=== PATIENT | female | born 1945 | race African-American/Black ===

== ENCOUNTER 2017-08-08 10:11 | Outpatient (CLI) | payer MEDICARE | END 2017-08-08 10:12 | disposition home or self-care (01) | LOC: BICMAMMO 10:11 | PROVIDERS: ATTEND Family Medicine | DX: Z12.31 Encounter for screening mammogram for malignant neoplasm of breast (principal); R92.1 Mammographic calcification found on diagnostic imaging of breast | CPT/HCPCS: 77063; 77067 ==

== ENCOUNTER 2018-01-10 07:36 | Outpatient (CLI) | payer MEDICARE ==
[2018-01-10] MEDS ORDERED: Gadobenate Dimeglumine 529 MG/1 ML (20ML VIAL) ONE (10:03)
== END 2018-01-10 07:37 | disposition home or self-care (01) ==
LOC: BICMRI 07:36
PROVIDERS: ATTEND Internal Medicine Gastroenterology
DX: K62.89 Other specified diseases of anus and rectum (principal); D64.9 Anemia, unspecified; R19.5 Other fecal abnormalities
CPT/HCPCS: 72197; 82565; A9579

== ENCOUNTER 2020-05-14 10:34 | Outpatient (CLI) | payer MEDICARE ==
--- NOTE | 2020-05-14 10:56 | RAD ---
XR Chest Pa Lat STANDARD HISTORY: Dyspnea COMPARISON: 03/23/2020 FINDINGS: The heart size is normal. The lungs are well expanded without lobar consolidation, pneumoth orax or pleural effusions. Chronic parenchymal changes are again seen.. IMPRESSION: Stable exam. No radiographic evidence of acute cardiopulmonary process.
== END 2020-05-14 10:35 | disposition home or self-care (01) ==
LOC: BICRAD 10:34
PROVIDERS: ATTEND Internal Medicine Critical Care Medicine
DX: R06.00 Dyspnea, unspecified (principal)
CPT/HCPCS: 71046

== ENCOUNTER 2020-09-08 09:24 | Outpatient (CLI) | payer MEDICARE ==
--- NOTE | 2020-09-08 11:15 | CT ---
High-resolution chest CT: 09/08/2020 CT angiogram chest comparison 03/01/2020 HISTORY: Interstitial lung disease, history of rheumatoid arthritis, cough, hypoxia TECHNIQUE: Routine noncontrast enhanced high resolution chest CT obtained. FINDINGS: Evaluation for pulmonary nodules, evaluation of the viscera, evaluation of the vascular str uctures and assessment for lymphadenopathy is limited secondary to technique utilized for high-resolution protocol. The arterial structures demonstrate scattered areas of atherosclerotic calcification involving the ao rtic arch, the proximal great great vessels, and the descending thoracic aorta, and the imaged upper abdominal aorta. Limited assessment of the upper abdomen demonstrates no acute findings. No pleural, pericardial, or mediastinal fluid. Right upper lobe: Mild scattered areas of bronchiectasis are noted. There are subpleural cystic saavedra es within the anterior and medial aspect of the right upper lobe. Right middle lobe: There are linear areas of interstitial thickening, especially within the inferior anterior/lateral aspect of the right middle lobe. There are areas of subpleural cystic change/honeycombing within the inferior lateral right middle lobe. Right lower lobe: Diffuse bronchiectatic change present. Significant linear interstitial density note d, especially medially within the superior segment with subpleural cystic change and basilar honeycombing. Left upper lobe: Prominent bronchiectasis, particularly anteriorly and medially with prominent inters titial thickening and anterior medial left upper lobe honeycombing. Left lower lobe: Prominent diffuse bronchiectasis with coarse linear interstitial thickening, particu larly inferiorly, with inferior left lower lobe honeycombing. Limited assessment of the osseous structures demonstrates no acute findings. IMPRESSION: Extensive interstitial lung disease with a basilar predominance, left greater than right. Findings include a prominent diffuse bronchiectasis with a basilar predominance as well as scattered areas of subpleural cystic emphysematous disease/honeycombing.
== END 2020-09-08 09:25 | disposition home or self-care (01) ==
LOC: BICCT 09:24
PROVIDERS: ATTEND Internal Medicine Critical Care Medicine
DX: J84.9 Interstitial pulmonary disease, unspecified (principal)
CPT/HCPCS: 71250

== ENCOUNTER 2020-11-17 10:00 | Outpatient (CLI) | payer MEDICARE ==
[2020-11-17 11:01] LABS: #Eosinphils 0.1 10x3/uL (0.0-0.5); #Monocytes 0.9 10x3/uL (0.0-1.1); #Neutrophils 4.7 10x3/uL (1.5-8.4); %Basophils 0.4 % (0.0-2.0); %Eosinophils 1.9 % (0.0-6.0); %Lymphocytes 20.5 % (18.0-47.0); %Monocytes 12.1 % (0.0-10.0); %Neutrophils 64.3 % (40.0-75.0); Hemoglobin 11.7 g/dL (12.0-15.5); Mean Corpuscular HGB CONC 30.6 g/dL (32.0-36.0); Mean Corpuscular Hemoglobin 24.7 pg (27.0-33.0); Mean Corpuscular Volume 80.8 fl (81.6-98.3); Mean Platelet Volume 11.5 fl (7.4-10.4); Platelet Count 239 10x3/uL (150-450); Red Blood Cell (RBC) Count 4.73 10x6/uL (3.90-5.03); White Blood Cell (WBC) Count 7.3 10x3/uL (3.5-10.5)
[2020-11-17 11:08] LABS: ALT (SGPT) 14 U/L (8-55); AST (SGOT) 24 U/L (5-34); Albumin 3.8 g/dL (3.4-4.8); Alkaline Phosphatase 95 U/L (40-110); Anion Gap 16 mmol/L (10-20); BUN (Urea Nitrogen) 31 mg/dL (9.8-20.1); Bilirubin, Total 0.6 mg/dL (0.2-1.2); Calc. Creatinine Clearance 0 mL/min (70-130); Calcium 9.4 mg/dL (7.8-10.44); Carbon Dioxide 18 mmol/L (23-31); Chloride 108 mmol/L (98-107); Glucose 116 mg/dL (83-110); Potassium 4.1 mmol/L (3.5-5.1); Protein, Total 7.8 g/dL (5.8-8.1); Sodium 138 mmol/L (136-145)
[2020-11-18 01:16] LABS: SARS-CoV-2 PCR by NAA Not Detected (NotDetected)
== END 2020-11-17 10:01 | disposition home or self-care (01) ==
LOC: LABBT 10:00
PROVIDERS: ATTEND Internal Medicine Cardiovascular Disease
DX: Z01.812 Encounter for preprocedural laboratory examination (principal); I42.9 Cardiomyopathy, unspecified; Z20.822 Contact with and (suspected) exposure to COVID-19
CPT/HCPCS: 80053; 85025; U0003; U0005; 87635

== ENCOUNTER 2020-12-13 17:12 | Inpatient (IN) | payer MEDICARE ==
[2020-12-13 17:53] LABS: #Lymphocytes 1.3 thou/uL (1.20-3.40); #Monocytes 0.8 thou/uL (0.11-0.59); #Neutrophils 5.9 thou/uL (1.40-6.50); %Basophils 0.5 % (0.0-1.0); %Eosinophils 0.5 % (0.0-10.0); %Lymphocytes 15.8 % (21.0-51.0); %Monocytes 10.4 % (0.0-10.0); %Neutrophils 72.9 % (42.0-75.0); Hemoglobin 11.8 g/dL (12.0-16.0); Mean Corpuscular Hemoglobin 26.5 pg (27.0-31.0); Mean Corpuscular Volume 82.6 fL (78.0-98.0); Mean Platelet Volume 9.5 fL (7.4-10.4); Platelet Count 247 thou/uL (130-400); RBC Distribution Width 11.9 % (11.5-14.5); Red Blood Cell (RBC) Count 4.44 mill/uL (4.20-5.40); White Blood Cell (WBC) Count 8.1 thou/uL (4.8-10.8)
[2020-12-13 18:15] LABS: ALT (SGPT) 11 U/L (8-55); AST (SGOT) 23 U/L (5-34); Albumin 3.5 g/dL (3.4-4.8); Alkaline Phosphatase 97 U/L (40-110); Anion Gap 16 mmol/L (10-20); BUN (Urea Nitrogen) 29 mg/dL (9.8-20.1); Bilirubin, Total 0.3 mg/dL (0.2-1.2); Calc. Creatinine Clearance 0 mL/min (70-130); Calcium 8.9 mg/dL (7.8-10.44); Carbon Dioxide 16 mmol/L (23-31); Chloride 113 mmol/L (98-107); Globulin 4.1 g/dL (2.4-3.5); Glucose 136 mg/dL (83-110); Potassium 5.9 mmol/L (3.5-5.1); Protein, Total 7.6 g/dL (5.8-8.1); Sodium 139 mmol/L (136-145)
[2020-12-13 18:36] LABS: CKMB 0.7 ng/mL (0-6.6)
[2020-12-13] MEDS ORDERED: Ondansetron PF 4 MG/2 ML Vial IVP PRN ×2 (21:15→22:49)
[2020-12-13] MEDS ORDERED: Acetaminophen 325 MG TAB PO PRN ×2 (21:15→22:49)
[2020-12-13] MEDS ORDERED: Ondansetron ODT 4 MG TAB SL PRN (21:15)
[2020-12-13 21:27] VITALS: BMI 20.6
[2020-12-13] MEDS ORDERED: HumaLOG 300 UNITS/3 ML VIAL SC PRN (22:51)
[2020-12-13] MEDS ORDERED: Dextrose 50% Abboject 50 ML SYRINGE SLOW IVP PRN (22:51)
[2020-12-13] MEDS ORDERED: Dextrose 5% in Water 1,000 ML IV PRN (22:51)
[2020-12-13] MEDS ORDERED: hydrALAZINE 20 MG/ML VIAL SLOW IVP PRN (22:53)
[2020-12-13] MEDS ORDERED: Carvedilol 25 MG TAB PO SCH (23:00)
[2020-12-13] MEDS: Sodium Bicarbonate 150 MEQ in Dextrose 5% in Water 1,000 ML IV SCH (23:35)
[2020-12-13 23:55] LABS: Troponin I 0.051 ng/mL (< 0.028)
[2020-12-14 02:10] LABS: Hemoglobin 9.5 g/dL (12.0-16.0); Mean Corpuscular HGB CONC 32.5 g/dL (32.0-36.0); Mean Corpuscular Hemoglobin 26.7 pg (27.0-31.0); Mean Corpuscular Volume 82.1 fL (78.0-98.0); Mean Platelet Volume 9.6 fL (7.4-10.4); Platelet Count 196 thou/uL (130-400); RBC Distribution Width 11.8 % (11.5-14.5); Red Blood Cell (RBC) Count 3.57 mill/uL (4.20-5.40); White Blood Cell (WBC) Count 7.6 thou/uL (4.8-10.8)
[2020-12-14 02:30] LABS: Band 5 % (5-11); Hypochromia SLIGHT = 6-15 cells (100X) (0-5/hpf); Lymphocytes 37 % (21-51); MDiff Complete? YES; Monocytes 13 % (0-10); Neutrophil 44 % (42-75); Platelet Morphology Comment Appears Adequate; Reactive Lymphocytes 1 % (0-10)
[2020-12-14 02:40] LABS: Troponin I 0.033 ng/mL (< 0.028)
[2020-12-14 03:09] LABS: Anion Gap 8 mmol/L (10-20); BUN (Urea Nitrogen) 29 mg/dL (9.8-20.1); Calc. Creatinine Clearance 16 mL/min (70-130); Calcium 8.4 mg/dL (7.8-10.44); Carbon Dioxide 19 mmol/L (23-31); Chloride 112 mmol/L (98-107); Glucose 125 mg/dL (83-110); Sodium 134 mmol/L (136-145)
[2020-12-14] MEDS: Hydroxychloroquine Sulfate 200 MG TAB PO SCH ×2 (08:55→20:37)
[2020-12-14] MEDS: Carvedilol 25 MG TAB PO SCH ×2 (08:55→20:38)
[2020-12-14 13:32] LABS: SARS-CoV-2 PCR NAA for Saliva Not Detected (NotDetected)
[2020-12-14] MEDS: HumaLOG 300 UNITS/3 ML VIAL SC PRN (18:14)
[2020-12-14] MEDS: Sodium Bicarbonate 150 MEQ in Dextrose 5% in Water 1,000 ML IV SCH (20:37)
[2020-12-15] MEDS: Carvedilol 25 MG TAB PO SCH (08:51)
[2020-12-15] MEDS: Hydroxychloroquine Sulfate 200 MG TAB PO SCH (08:51)
[2020-12-15 09:35] LABS: #Basophils 0.1 thou/uL (0.0-0.2); #Lymphocytes 1.2 thou/uL (1.20-3.40); #Monocytes 0.7 thou/uL (0.11-0.59); #Neutrophils 4.3 thou/uL (1.40-6.50); %Basophils 0.8 % (0.0-1.0); %Eosinophils 0.5 % (0.0-10.0); %Lymphocytes 18.3 % (21.0-51.0); %Monocytes 11.7 % (0.0-10.0); %Neutrophils 68.7 % (42.0-75.0); Hemoglobin 10.5 g/dL (12.0-16.0); Mean Corpuscular HGB CONC 30.8 g/dL (32.0-36.0); Mean Corpuscular Hemoglobin 25.3 pg (27.0-31.0); Mean Corpuscular Volume 82.1 fL (78.0-98.0); Mean Platelet Volume 9.6 fL (7.4-10.4); Platelet Count 226 thou/uL (130-400); RBC Distribution Width 11.9 % (11.5-14.5); Red Blood Cell (RBC) Count 4.14 mill/uL (4.20-5.40); White Blood Cell (WBC) Count 6.3 thou/uL (4.8-10.8)
[2020-12-15 09:55] LABS: Anion Gap 12 mmol/L (10-20); BUN (Urea Nitrogen) 25 mg/dL (9.8-20.1); Calc. Creatinine Clearance 15 mL/min (70-130); Calcium 9.3 mg/dL (7.8-10.44); Carbon Dioxide 26 mmol/L (23-31); Chloride 105 mmol/L (98-107); Glucose 183 mg/dL (83-110); Potassium 4.7 mmol/L (3.5-5.1); Sodium 138 mmol/L (136-145)
[2020-12-15] MEDS: HumaLOG 300 UNITS/3 ML VIAL SC PRN (11:27)
[2020-12-15] MEDS ORDERED: Furosemide 20 MG/2 ML VIAL SLOW IVP SCH (12:15)
[2020-12-15 15:52] VITALS: BP 153/72; TEMP 97.5
== END 2020-12-15 18:00 | disposition home or self-care (01) | DRG 683 ==
LOC: ERS 17:12 → 2NO 19:39
PROVIDERS: ADMIT Family Medicine; ATTEND Family Medicine
DX: N17.9 Acute kidney failure, unspecified (principal); J96.11 Chronic respiratory failure with hypoxia; E87.2 Acidosis; I42.8 Other cardiomyopathies; E87.5 Hyperkalemia; I25.10 Atherosclerotic heart disease of native coronary artery without angina pectoris; E11.22 Type 2 diabetes mellitus with diabetic chronic kidney disease; I12.9 Hypertensive chronic kidney disease with stage 1 through stage 4 chronic kidney disease, or unspecified chronic kidney disease; D63.1 Anemia in chronic kidney disease; N18.30 Chronic kidney disease, stage 3 unspecified; M32.9 Systemic lupus erythematosus, unspecified; M06.9 Rheumatoid arthritis, unspecified; E11.51 Type 2 diabetes mellitus with diabetic peripheral angiopathy without gangrene; M10.9 Gout, unspecified; R77.8 Other specified abnormalities of plasma proteins; Z99.81 Dependence on supplemental oxygen; Z79.899 Other long term (current) drug therapy; Z90.710 Acquired absence of both cervix and uterus
CPT/HCPCS: 36415; 36416; 80048; 80053; 80069; 81003; 82306; 82553; 82570; 83880; 84156; 84484; 84550; 85025; 85027; 85652; 86038; 86225; 93005; 94640; J1815; J1940; J7070; J7620; U0003; U0005

== ENCOUNTER 2020-12-17 16:32 | Inpatient (IN) | payer MEDICARE ==
[2020-12-17 17:21] LABS: #Eosinphils 0.1 thou/uL (0.0-0.7); #Lymphocytes 1.5 thou/uL (1.20-3.40); #Monocytes 1.2 thou/uL (0.11-0.59); %Basophils 0.6 % (0.0-1.0); %Eosinophils 1.9 % (0.0-10.0); %Lymphocytes 18.6 % (21.0-51.0); %Monocytes 14.8 % (0.0-10.0); %Neutrophils 64.1 % (42.0-75.0); Hemoglobin 10.7 g/dL (12.0-16.0); Mean Corpuscular HGB CONC 30.5 g/dL (32.0-36.0); Mean Corpuscular Hemoglobin 25.2 pg (27.0-31.0); Mean Corpuscular Volume 82.7 fL (78.0-98.0); Mean Platelet Volume 9.8 fL (7.4-10.4); Platelet Count 233 thou/uL (130-400); RBC Distribution Width 11.8 % (11.5-14.5); Red Blood Cell (RBC) Count 4.24 mill/uL (4.20-5.40); White Blood Cell (WBC) Count 7.8 thou/uL (4.8-10.8)
[2020-12-17 17:42] LABS: ALT (SGPT) 10 U/L (8-55); AST (SGOT) 20 U/L (5-34); Albumin 3.4 g/dL (3.4-4.8); Alkaline Phosphatase 87 U/L (40-110); Anion Gap 14 mmol/L (10-20); BUN (Urea Nitrogen) 28 mg/dL (9.8-20.1); Bilirubin, Total 0.3 mg/dL (0.2-1.2); Calc. Creatinine Clearance 0 mL/min (70-130); Calcium 8.7 mg/dL (7.8-10.44); Carbon Dioxide 23 mmol/L (23-31); Chloride 109 mmol/L (98-107); Globulin 3.8 g/dL (2.4-3.5); Glucose 140 mg/dL (83-110); Potassium 4.5 mmol/L (3.5-5.1); Protein, Total 7.2 g/dL (5.8-8.1); Sodium 141 mmol/L (136-145)
[2020-12-17 18:05] LABS: CKMB 0.5 ng/mL (0-6.6)
[2020-12-17] MEDS ORDERED: Furosemide 40 MG/4 ML VIAL ONE (20:24)
[2020-12-17 20:35] LABS: Bilirubin Negative (Negative); Blood, Urine Negative (Negative); Clarity Clear (Clear); Glucose, Urine (Dipstick) Normal (Negative); Ketone, Urine Negative (Negative); Leukocyte 25 Leu/uL (Negative); Nitrite Negative (Negative); Protein, Urine (Dipstick) 100 mg/dL (Neg-Trace); RBC/HPF 0-3 HPF (0-3); Specific Gravity, Urine 1.015 (1.002-1.036); Squamous Epithelial 0-3 HPF (0-3); Urobilinogen Normal mg/dL (Less than 2)
[2020-12-17 20:36] LABS: Bacteria/HPF Rare-Few HPF (None Seen)
[2020-12-17 21:24] LABS: Troponin I 0.043 ng/mL (< 0.028)
[2020-12-18 00:09] LABS: Troponin I 0.046 ng/mL (< 0.028)
[2020-12-18] MEDS ORDERED: Ondansetron PF 4 MG/2 ML Vial IVP PRN (00:30)
[2020-12-18] MEDS ORDERED: Acetaminophen 325 MG TAB PO PRN (00:30)
[2020-12-18] MEDS ORDERED: Dextrose 50% Abboject 50 ML SYRINGE SLOW IVP PRN (00:34)
[2020-12-18] MEDS ORDERED: Dextrose 5% in Water 1,000 ML IV PRN (00:34)
[2020-12-18] MEDS ORDERED: methylPREDNISolone Sod Succ 40 MG VIAL IVP SCH (01:00)
[2020-12-18] MEDS ORDERED: cefTRIAXone\\ROCEPHIN 1 GM VIAL ONE (01:16)
[2020-12-18] MEDS: cefTRIAXone\\ROCEPHIN 1 GM in Sodium Chloride 0.9% 100 ML IVPB SCH (01:27)
[2020-12-18] MEDS: guaiFENesin ER 600 MG TAB PO PRN ×2 (01:47→20:50)
[2020-12-18] MEDS ORDERED: hydrALAZINE 20 MG/ML VIAL SLOW IVP PRN (04:05)
[2020-12-18] MEDS ORDERED: hydrALAZINE 20 MG/ML VIAL ONE (05:05)
[2020-12-18] MEDS ORDERED: Enoxaparin Sodium 60 MG/0.6 ML SYRINGE SC SCH (05:30)
[2020-12-18 05:33] LABS: Hemoglobin 10.6 g/dL (12.0-16.0); Mean Corpuscular HGB CONC 31.8 g/dL (32.0-36.0); Mean Corpuscular Hemoglobin 26.2 pg (27.0-31.0); Mean Corpuscular Volume 82.6 fL (78.0-98.0); Mean Platelet Volume 9.9 fL (7.4-10.4); Platelet Count 201 thou/uL (130-400); RBC Distribution Width 11.7 % (11.5-14.5); Red Blood Cell (RBC) Count 4.03 mill/uL (4.20-5.40); White Blood Cell (WBC) Count 7.7 thou/uL (4.8-10.8)
[2020-12-18 05:47] LABS: Anion Gap 13 mmol/L (10-20); BUN (Urea Nitrogen) 29 mg/dL (9.8-20.1); Calc. Creatinine Clearance 16 mL/min (70-130); Calcium 8.9 mg/dL (7.8-10.44); Carbon Dioxide 23 mmol/L (23-31); Chloride 107 mmol/L (98-107); Glucose 117 mg/dL (83-110); Potassium 4.2 mmol/L (3.5-5.1); Sodium 139 mmol/L (136-145)
[2020-12-18 06:03] LABS: Band 5 % (5-11); Eosinophils 2 % (0-10); Lymphocytes 29 % (21-51); MDiff Complete? YES; Monocytes 13 % (0-10); Neutrophil 51 % (42-75)
[2020-12-18] MEDS ORDERED: Enoxaparin Sodium 60 MG/0.6 ML SYRINGE ONE (06:06)
[2020-12-18] MEDS ORDERED: Famotidine 20 MG TAB ONE (08:12)
[2020-12-18] MEDS ORDERED: Furosemide 20 MG/2 ML VIAL ONE (08:12)
[2020-12-18] MEDS ORDERED: Enoxaparin Sodium 30 MG/0.3 ML SYRINGE SC SCH (09:00)
[2020-12-18] MEDS ORDERED: Carvedilol 3.125 MG TAB PO SCH (09:00)
[2020-12-18] MEDS ORDERED: guaiFENesin ER 600 MG TAB PO SCH (09:00)
[2020-12-18 09:33] VITALS: BMI 21.5
[2020-12-18] MEDS: Carvedilol 25 MG TAB PO SCH ×2 (11:37→17:34)
[2020-12-18] MEDS: Famotidine 20 MG TAB PO SCH (11:38)
[2020-12-18] MEDS: Furosemide 20 MG/2 ML VIAL SLOW IVP SCH ×3 (11:39→18:45)
[2020-12-18] MEDS: hydrALAZINE 25 MG TAB PO SCH ×3 (11:39→20:42)
[2020-12-18] MEDS: methylPREDNISolone Sod Succ 40 MG VIAL IVP SCH ×3 (11:41→20:50)
[2020-12-18] MEDS: Isosorbide Dinitrate 20 MG TAB PO SCH ×3 (11:41→20:49)
[2020-12-18] MEDS ORDERED: Albuterol 200 PUFF (6.7GM INHALER) INH SCH (13:00)
[2020-12-18] MEDS: HumaLOG 300 UNITS/3 ML VIAL SC PRN ×2 (17:23→20:51)
[2020-12-19] MEDS: cefTRIAXone\\ROCEPHIN 1 GM in Sodium Chloride 0.9% 100 ML IVPB SCH (01:43)
[2020-12-19] MEDS: HumaLOG 300 UNITS/3 ML VIAL SC PRN ×4 (06:12→21:17)
[2020-12-19 07:27] LABS: Anion Gap 18 mmol/L (10-20); BUN (Urea Nitrogen) 45 mg/dL (9.8-20.1); Calc. Creatinine Clearance 10 mL/min (70-130); Calcium 9.5 mg/dL (7.8-10.44); Carbon Dioxide 20 mmol/L (23-31); Chloride 105 mmol/L (98-107); Glucose 198 mg/dL (83-110); Potassium 5.6 mmol/L (3.5-5.1); Sodium 137 mmol/L (136-145)
[2020-12-19 07:31] LABS: Troponin I 0.042 ng/mL (< 0.028)
[2020-12-19 07:36] LABS: Band 8 % (5-11); Hemoglobin 10.7 g/dL (12.0-16.0); Lymphocytes 9 % (21-51); MDiff Complete? YES; Mean Corpuscular HGB CONC 31.2 g/dL (32.0-36.0); Mean Corpuscular Hemoglobin 25.5 pg (27.0-31.0); Mean Corpuscular Volume 81.8 fL (78.0-98.0); Mean Platelet Volume 10.3 fL (7.4-10.4); Monocytes 2 % (0-10); Neutrophil 81 % (42-75); Platelet Count 202 thou/uL (130-400); RBC Distribution Width 11.8 % (11.5-14.5); White Blood Cell (WBC) Count 10.1 thou/uL (4.8-10.8)
[2020-12-19] MEDS: Famotidine 20 MG TAB PO SCH (09:09)
[2020-12-19] MEDS: hydrALAZINE 25 MG TAB PO SCH ×3 (09:09→21:19)
[2020-12-19] MEDS: Isosorbide Dinitrate 20 MG TAB PO SCH ×3 (09:09→21:19)
[2020-12-19] MEDS: Furosemide 20 MG/2 ML VIAL SLOW IVP SCH (09:11)
[2020-12-19] MEDS: Carvedilol 25 MG TAB PO SCH ×2 (09:11→18:07)
[2020-12-19] MEDS: Enoxaparin Sodium 30 MG/0.3 ML SYRINGE SC SCH (09:12)
[2020-12-19] MEDS: methylPREDNISolone Sod Succ 40 MG VIAL IVP SCH (09:12)
[2020-12-19] MEDS: Benzonatate 100 MG CAP PO PRN (14:57)
[2020-12-19] MEDS: guaiFENesin ER 600 MG TAB PO PRN (21:20)
[2020-12-20] MEDS: cefTRIAXone\\ROCEPHIN 1 GM in Sodium Chloride 0.9% 100 ML IVPB SCH (02:08)
[2020-12-20] MEDS: Benzonatate 100 MG CAP PO PRN ×2 (02:09→20:49)
[2020-12-20 05:39] LABS: Anion Gap 17 mmol/L (10-20); BUN (Urea Nitrogen) 62 mg/dL (9.8-20.1); Calc. Creatinine Clearance 11 mL/min (70-130); Calcium 8.6 mg/dL (7.8-10.44); Carbon Dioxide 20 mmol/L (23-31); Chloride 106 mmol/L (98-107); Glucose 153 mg/dL (83-110); Potassium 4.7 mmol/L (3.5-5.1); Sodium 138 mmol/L (136-145)
[2020-12-20 06:03] LABS: Hemoglobin 9.6 g/dL (12.0-16.0); Mean Corpuscular HGB CONC 31.6 g/dL (32.0-36.0); Mean Corpuscular Hemoglobin 25.7 pg (27.0-31.0); Mean Corpuscular Volume 81.6 fL (78.0-98.0); Platelet Count 209 thou/uL (130-400); RBC Distribution Width 11.9 % (11.5-14.5); Red Blood Cell (RBC) Count 3.73 mill/uL (4.20-5.40); White Blood Cell (WBC) Count 20.2 thou/uL (4.8-10.8)
[2020-12-20 06:04] LABS: Band 11 % (5-11); Lymphocytes 7 % (21-51); MDiff Complete? YES; Monocytes 8 % (0-10); Neutrophil 74 % (42-75)
[2020-12-20] MEDS ORDERED: predniSONE 20 MG TAB PO SCH ×2 (08:00→18:10)
[2020-12-20] MEDS: Carvedilol 25 MG TAB PO SCH ×2 (08:52→16:19)
[2020-12-20] MEDS: Famotidine 20 MG TAB PO SCH (08:52)
[2020-12-20] MEDS: hydrALAZINE 25 MG TAB PO SCH ×3 (08:53→20:49)
[2020-12-20] MEDS: Enoxaparin Sodium 30 MG/0.3 ML SYRINGE SC SCH (08:53)
[2020-12-20] MEDS: Isosorbide Dinitrate 20 MG TAB PO SCH ×3 (08:53→20:50)
[2020-12-20] MEDS: HumaLOG 300 UNITS/3 ML VIAL SC PRN ×3 (11:27→21:18)
[2020-12-20] MEDS ORDERED: Furosemide 40 MG/4 ML VIAL SLOW IVP SCH (18:30)
[2020-12-21] MEDS: cefTRIAXone\\ROCEPHIN 1 GM in Sodium Chloride 0.9% 100 ML IVPB SCH (00:36)
[2020-12-21 05:02] LABS: #Lymphocytes 1.5 thou/uL (1.20-3.40); #Monocytes 1.1 thou/uL (0.11-0.59); #Neutrophils 13.7 thou/uL (1.40-6.50); %Basophils 0.1 % (0.0-1.0); %Lymphocytes 8.9 % (21.0-51.0); %Monocytes 6.5 % (0.0-10.0); %Neutrophils 84.5 % (42.0-75.0); Hemoglobin 9.8 g/dL (12.0-16.0); Mean Corpuscular HGB CONC 31.4 g/dL (32.0-36.0); Mean Corpuscular Volume 82.8 fL (78.0-98.0); Mean Platelet Volume 10.4 fL (7.4-10.4); Platelet Count 213 thou/uL (130-400); RBC Distribution Width 11.7 % (11.5-14.5); Red Blood Cell (RBC) Count 3.77 mill/uL (4.20-5.40); White Blood Cell (WBC) Count 16.3 thou/uL (4.8-10.8)
[2020-12-21 05:20] LABS: Anion Gap 14 mmol/L (10-20); BUN (Urea Nitrogen) 70 mg/dL (9.8-20.1); Calc. Creatinine Clearance 11 mL/min (70-130); Carbon Dioxide 21 mmol/L (23-31); Chloride 108 mmol/L (98-107); Glucose 157 mg/dL (83-110); Potassium 4.6 mmol/L (3.5-5.1); Sodium 138 mmol/L (136-145)
[2020-12-21] MEDS: Famotidine 20 MG TAB PO SCH (08:44)
[2020-12-21] MEDS: Enoxaparin Sodium 30 MG/0.3 ML SYRINGE SC SCH (08:44)
[2020-12-21] MEDS: Isosorbide Dinitrate 20 MG TAB PO SCH ×2 (08:44→15:25)
[2020-12-21] MEDS: Carvedilol 25 MG TAB PO SCH (08:44)
[2020-12-21] MEDS: hydrALAZINE 25 MG TAB PO SCH ×2 (08:44→15:25)
[2020-12-21 15:23] VITALS: BP 121/59; TEMP 97.7
[2020-12-22] MEDS ORDERED: Furosemide 40 MG TAB PO SCH (07:30)
== END 2020-12-21 16:55 | disposition home or self-care (01) | DRG 291 ==
LOC: ERS 16:32 → 2SW 20:15 → ERHOLD 20:28 → 2SW 12-18 08:57 → 2NO 12-20 08:29
PROVIDERS: ADMIT Internal Medicine; ATTEND Internal Medicine
DX: I13.0 Hypertensive heart and chronic kidney disease with heart failure and stage 1 through stage 4 chronic kidney disease, or unspecified chronic kidney disease (principal); I50.23 Acute on chronic systolic (congestive) heart failure; N17.9 Acute kidney failure, unspecified; N30.00 Acute cystitis without hematuria; J84.9 Interstitial pulmonary disease, unspecified; J96.11 Chronic respiratory failure with hypoxia; N18.30 Chronic kidney disease, stage 3 unspecified; E11.22 Type 2 diabetes mellitus with diabetic chronic kidney disease; M32.9 Systemic lupus erythematosus, unspecified; D63.1 Anemia in chronic kidney disease; M06.9 Rheumatoid arthritis, unspecified; M10.9 Gout, unspecified; E11.51 Type 2 diabetes mellitus with diabetic peripheral angiopathy without gangrene; I25.5 Ischemic cardiomyopathy; I25.10 Atherosclerotic heart disease of native coronary artery without angina pectoris; I42.8 Other cardiomyopathies; E55.9 Vitamin D deficiency, unspecified; R77.8 Other specified abnormalities of plasma proteins; J84.10 Pulmonary fibrosis, unspecified; D72.829 Elevated white blood cell count, unspecified; Z90.49 Acquired absence of other specified parts of digestive tract; Z28.21 Immunization not carried out because of patient refusal; Z87.891 Personal history of nicotine dependence; I25.2 Old myocardial infarction; Z90.710 Acquired absence of both cervix and uterus; Z99.81 Dependence on supplemental oxygen; Z82.49 Family history of ischemic heart disease and other diseases of the circulatory system; Z91.14 Patient's other noncompliance with medication regimen; Z79.899 Other long term (current) drug therapy
CPT/HCPCS: 36415; 36416; 71045; 71046; 80048; 80053; 81003; 81015; 82553; 83880; 84484; 85025; 87086; 93005; 93970; 94640; 96374; J0360; J0696; J1650; J1815; J1940; J2920; J3490; J7512; J7620

== ENCOUNTER 2022-02-02 18:24 | Inpatient (IN) | payer MEDICARE ==
[2022-02-02 19:21] LABS: #Lymphocytes 1.1 thou/uL (1.20-3.40); #Monocytes 0.5 thou/uL (0.11-0.59); %Basophils 0.5 % (0.0-1.0); %Eosinophils 0.2 % (0.0-10.0); %Lymphocytes 14.1 % (21.0-51.0); %Monocytes 6.1 % (0.0-10.0); Hemoglobin 14.2 g/dL (12.0-16.0); Mean Corpuscular Hemoglobin 26.8 pg (27.0-31.0); Mean Corpuscular Volume 89.4 fL (78.0-98.0); Mean Platelet Volume 12.2 fL (7.4-10.4); Platelet Count 133 thou/uL (130-400); RBC Distribution Width 14.7 % (11.5-14.5); White Blood Cell (WBC) Count 7.6 thou/uL (4.8-10.8)
[2022-02-02 19:23] LABS: INR-International Normal Ratio 1.6; Prothrombin Time 18.9 sec (12.0-14.7)
[2022-02-02 19:24] LABS: PTT 28.5 sec (22.9-36.1)
[2022-02-02 19:29] LABS: ALT (SGPT) 104 U/L (8-55); AST (SGOT) 193 U/L (5-34); Albumin 3.3 g/dL (3.4-4.8); Alkaline Phosphatase 103 U/L (40-110); Anion Gap 24 mmol/L (10-20); BUN (Urea Nitrogen) 84 mg/dL (9.8-20.1); Bilirubin, Total 0.7 mg/dL (0.2-1.2); Calc. Creatinine Clearance 0 mL/min (70-130); Calcium 9.5 mg/dL (7.8-10.44); Chloride 110 mmol/L (98-107); Estimated GFR 11; Globulin 4.6 g/dL (2.4-3.5); Glucose 91 mg/dL (83-110); Potassium 5.9 mmol/L (3.5-5.1); Protein, Total 7.9 g/dL (5.8-8.1); Sodium 136 mmol/L (136-145)
[2022-02-02 19:32] LABS: Carbon Dioxide 8 mmol/L (23-31)
[2022-02-02 19:33] LABS: D-Dimer Test 4.35 *mcg/mL (0.27-0.43)
[2022-02-02 19:37] LABS: Hypochromia SLIGHT = 6-15 cells (100X) (0-5/hpf); Large Platelets SLIGHT; MDiff Complete? YES; Platelet Morphology Comment Appears Adequate; Polychromasia SLIGHT = 2-3 cells (100X) (0-2/hpf); Target Cells SLIGHT = 2-5 cells (100X) (0-1/hpf)
[2022-02-02 20:01] LABS: SARS-CoV-2 NAA Rapid Test Not Detected (NotDetected)
[2022-02-02] MEDS ORDERED: Cefepime 2 GM VIAL ONE (20:13)
[2022-02-02 20:16] LABS: Bacteria/HPF 4+ HPF (None Seen); Bilirubin Negative (Negative); Blood, Urine Trace (Negative); Clarity Clear (Clear); Glucose, Urine (Dipstick) Normal (Negative); Ketone, Urine Negative (Negative); Leukocyte 250 Leu/uL (Negative); Nitrite 1+ (Negative); Protein, Urine (Dipstick) 30 mg/dL (Neg-Trace); RBC/HPF 0-3 HPF (0-3); Specific Gravity, Urine 1.012 (1.002-1.036); Squamous Epithelial 0-3 HPF (0-3); Urobilinogen Normal mg/dL (Less than 2)
[2022-02-02] MEDS ORDERED: Calcium Gluc 4.6 MEQ/10 ML (100 MG/ML) ONE (20:23)
[2022-02-02] MEDS ORDERED: Sodium Bicarbonate 2.5 MEQ/5 ML VIAL ONE (20:23)
[2022-02-02] MEDS ORDERED: Sodium Bicarb 50 MEQ/50 ML Abboject 8.4% SYRINGE ONE (20:35)
[2022-02-02 20:39] LABS: Analyzer IN Cardio ER; Calcium, Ionized (venous) 1.13 mmol/L (1.16-1.32); Chloride (VBG) 109 mmol/L (98-106); Hemoglobin (Hb) 13.5 g/dL (11.7-16.1); Potassium (VBG) 5.43 mmol/L (3.70-5.30); Sodium 137.1 mmol/L (133-146); pH (venous) 7.29 (7.32-7.43)
[2022-02-02 20:47] LABS: Actual Bicarbonate (HCO3v) 14 mEq/L (22-28)
[2022-02-02 20:50] LABS: CKMB 1.9 ng/mL (0-6.6)
[2022-02-02] MEDS ORDERED: Heparin 25,000 units/D5W 500 ML ONE (21:29)
[2022-02-02] MEDS ORDERED: Nitroglycerin 2% Ointment 1 INCH/1 GM Packet ONE (21:29)
[2022-02-02] MEDS ORDERED: Heparin 10,000 UNITS/ 10 ML VIAL ONE (21:29)
[2022-02-02 22:20] LABS: Lactic Acid 3.4 mmol/L (0.5-2.2)
[2022-02-02] MEDS ORDERED: Ondansetron ODT 4 MG TAB PO PRN (22:48)
[2022-02-02] MEDS ORDERED: HYDROcodone/Acetaminophen 5/325 mg Tablet PO PRN ×2 (22:48)
[2022-02-02] MEDS ORDERED: Ondansetron PF 4 MG/2 ML Vial IVP PRN (22:48)
[2022-02-02 23:21] VITALS: BMI 19.5
[2022-02-02] MEDS: Benzonatate 100 MG CAP PO PRN (23:40)
[2022-02-02 23:44] LABS: Troponin I 0.696 ng/mL (< 0.028)
[2022-02-02] MEDS ORDERED: Fentanyl 100 MCG/2 ML VIAL SLOW IVP PRN (23:56)
[2022-02-03 00:50] LABS: Anion Gap 23 mmol/L (10-20); BUN (Urea Nitrogen) 82 mg/dL (9.8-20.1); Calc. Creatinine Clearance 9 mL/min (70-130); Calcium 9.4 mg/dL (7.8-10.44); Carbon Dioxide 13 mmol/L (23-31); Chloride 111 mmol/L (98-107); Estimated GFR 12; Glucose 83 mg/dL (83-110); Potassium 5.6 mmol/L (3.5-5.1); Sodium 141 mmol/L (136-145)
[2022-02-03] MEDS ORDERED: HumaLOG 300 UNITS/3 ML VIAL SC PRN (01:49)
[2022-02-03] MEDS ORDERED: Dextrose 5% in Water 1,000 ML IV PRN (01:49)
[2022-02-03] MEDS ORDERED: Dextrose 50% Abboject 50 ML SYRINGE SLOW IVP PRN (01:49)
[2022-02-03] MEDS ORDERED: methylPREDNISolone Sod Succ 40 MG VIAL IVP SCH (02:30)
[2022-02-03 04:13] LABS: Anion Gap 21 mmol/L (10-20); BUN (Urea Nitrogen) 83 mg/dL (9.8-20.1); Calc. Creatinine Clearance 9 mL/min (70-130); Calcium 9.4 mg/dL (7.8-10.44); Carbon Dioxide 12 mmol/L (23-31); Chloride 112 mmol/L (98-107); Estimated GFR 12; Glucose 78 mg/dL (83-110); Sodium 139 mmol/L (136-145)
[2022-02-03 04:20] LABS: Critical Call Chem Troponin I RESULT DECREASING; Troponin I 0.625 ng/mL (< 0.028)
[2022-02-03 04:27] LABS: #Lymphocytes 1.3 thou/uL (1.20-3.40); #Monocytes 1.1 thou/uL (0.11-0.59); #Neutrophils 6.8 thou/uL (1.40-6.50); %Basophils 0.1 % (0.0-1.0); %Eosinophils 0.2 % (0.0-10.0); %Lymphocytes 13.9 % (21.0-51.0); %Monocytes 11.5 % (0.0-10.0); %Neutrophils 74.3 % (42.0-75.0); Burr Cells SLIGHT = 2-5 cells (100X) (0-1/hpf); Hypochromia SLIGHT = 6-15 cells (100X) (0-5/hpf); MDiff Complete? YES; Mean Corpuscular HGB CONC 30.9 g/dL (32.0-36.0); Mean Corpuscular Hemoglobin 27.1 pg (27.0-31.0); Mean Corpuscular Volume 87.8 fL (78.0-98.0); Mean Platelet Volume 11.6 fL (7.4-10.4); Platelet Count 118 thou/uL (130-400); Platelet Morphology Comment Appears Decreased; Polychromasia SLIGHT = 2-3 cells (100X) (0-2/hpf); RBC Distribution Width 14.3 % (11.5-14.5); Red Blood Cell (RBC) Count 4.78 mill/uL (4.20-5.40); Sickle Cells SLIGHT = 1-5 cells (100X) (None Seen); Target Cells SLIGHT = 2-5 cells (100X) (0-1/hpf); White Blood Cell (WBC) Count 9.1 thou/uL (4.8-10.8)
[2022-02-03 04:33] LABS: Lactic Acid 2.9 mmol/L (0.5-2.2)
[2022-02-03] MEDS: Enoxaparin Sodium 30 MG/0.3 ML SYRINGE SC SCH (07:45)
[2022-02-03] MEDS: methylPREDNISolone Sod Succ 40 MG VIAL IVP SCH (07:46)
[2022-02-03] MEDS ORDERED: Cefepime 2 GM in Sodium Chloride 0.9% 100 ML IVPB SCH (08:00)
[2022-02-03] MEDS ORDERED: Heparin 10,000 UNITS/ 10 ML VIAL ONE (09:23)
[2022-02-03] MEDS: HumaLOG 300 UNITS/3 ML VIAL SC PRN (11:28)
[2022-02-03] MEDS ORDERED: Tuberculin PPD 0.1 ML VIAL I-DERMAL SCH (15:15)
[2022-02-03 17:34] LABS: Anion Gap 19 mmol/L (10-20); BUN (Urea Nitrogen) 86 mg/dL (9.8-20.1); Calc. Creatinine Clearance 8 mL/min (70-130); Calcium 9.1 mg/dL (7.8-10.44); Carbon Dioxide 17 mmol/L (23-31); Chloride 110 mmol/L (98-107); Estimated GFR 11; Glucose 279 mg/dL (83-110); Potassium 5.6 mmol/L (3.5-5.1); Sodium 140 mmol/L (136-145)
[2022-02-03 17:50] LABS: HBSAB Concentration Less than 8.00 mIU/mL; HBSAg Index 0.35 S/CO (0-0.99); Hep B Surf AB Non-Reactive (NonReactive); Hep B Surf Ag Non-Reactive S/CO (NonReactive); Hep C IgG Ab Non-Reactive (NonReactive); Hep C Index 0.06 S/CO (0-0.79)
[2022-02-03 17:51] LABS: Hep A IgM AB Non-Reactive (NonReactive); Hep A IgM S/CO 0.14 S/CO (0-0.79)
[2022-02-03 17:53] LABS: Hepatitis B Core IgM Abs Non-Reactive (NonReactive)
[2022-02-03 18:13] LABS: HIV (1/2) Antibody/Antigen Non-Reactive (NonReactive)
[2022-02-03 18:14] LABS: HIV 1/2 INDEX 0.09 S/CO (<1.00)
[2022-02-03 19:00] LABS: HBSAg Index 0.28 S/CO (0-0.99); Hep B Surf Ag Non-Reactive S/CO (NonReactive)
[2022-02-03] MEDS: Cefepime 0.5 GM, Admixture Fee 1 EACH in Sodium Chloride 0.9% 100 ML IVPB SCH (23:41)
[2022-02-04 03:49] LABS: #Lymphocytes 0.8 thou/uL (1.20-3.40); #Monocytes 0.9 thou/uL (0.11-0.59); #Neutrophils 11.7 thou/uL (1.40-6.50); %Eosinophils 0.1 % (0.0-10.0); %Monocytes 6.9 % (0.0-10.0); Hemoglobin 11.7 g/dL (12.0-16.0); Mean Corpuscular Hemoglobin 26.9 pg (27.0-31.0); Mean Corpuscular Volume 87.1 fL (78.0-98.0); Mean Platelet Volume 11.6 fL (7.4-10.4); Platelet Count 124 thou/uL (130-400); RBC Distribution Width 14.1 % (11.5-14.5); Red Blood Cell (RBC) Count 4.34 mill/uL (4.20-5.40); White Blood Cell (WBC) Count 13.4 thou/uL (4.8-10.8)
[2022-02-04 04:11] LABS: Anion Gap 18 mmol/L (10-20); BUN (Urea Nitrogen) 69 mg/dL (9.8-20.1); Calc. Creatinine Clearance 10 mL/min (70-130); Calcium 8.7 mg/dL (7.8-10.44); Carbon Dioxide 18 mmol/L (23-31); Chloride 106 mmol/L (98-107); Estimated GFR 13; Glucose 212 mg/dL (83-110); Magnesium 1.9 mg/dL (1.6-2.6); Potassium 4.3 mmol/L (3.5-5.1); Sodium 138 mmol/L (136-145)
[2022-02-04] MEDS: methylPREDNISolone Sod Succ 40 MG VIAL IVP SCH (08:15)
[2022-02-04] MEDS: Enoxaparin Sodium 30 MG/0.3 ML SYRINGE SC SCH (08:16)
[2022-02-04] MEDS: HumaLOG 300 UNITS/3 ML VIAL SC PRN (16:33)
[2022-02-04] MEDS: Tuberculin PPD 0.1 ML VIAL I-DERMAL SCH (16:53)
[2022-02-04] MEDS: Cefepime 0.5 GM, Admixture Fee 1 EACH in Sodium Chloride 0.9% 100 ML IVPB SCH (20:41)
[2022-02-04] MEDS: Benzonatate 100 MG CAP PO PRN (22:51)
[2022-02-05 04:20] LABS: #Lymphocytes 0.8 thou/uL (1.20-3.40); #Monocytes 0.8 thou/uL (0.11-0.59); #Neutrophils 15.4 thou/uL (1.40-6.50); %Lymphocytes 4.4 % (21.0-51.0); %Monocytes 4.7 % (0.0-10.0); %Neutrophils 90.9 % (42.0-75.0); Hemoglobin 11.9 g/dL (12.0-16.0); Mean Corpuscular HGB CONC 30.5 g/dL (32.0-36.0); Mean Corpuscular Hemoglobin 26.7 pg (27.0-31.0); Mean Corpuscular Volume 87.4 fL (78.0-98.0); Mean Platelet Volume 11.8 fL (7.4-10.4); Platelet Count 119 thou/uL (130-400); RBC Distribution Width 14.4 % (11.5-14.5); Red Blood Cell (RBC) Count 4.45 mill/uL (4.20-5.40); White Blood Cell (WBC) Count 16.9 thou/uL (4.8-10.8)
[2022-02-05 04:38] LABS: Anion Gap 18 mmol/L (10-20); BUN (Urea Nitrogen) 76 mg/dL (9.8-20.1); Calc. Creatinine Clearance 10 mL/min (70-130); Calcium 8.8 mg/dL (7.8-10.44); Carbon Dioxide 17 mmol/L (23-31); Chloride 106 mmol/L (98-107); Estimated GFR 13; Glucose 177 mg/dL (83-110); Potassium 4.2 mmol/L (3.5-5.1); Sodium 137 mmol/L (136-145)
[2022-02-05] MEDS ORDERED: Heparin 10,000 UNITS/ 10 ML VIAL ONE (09:25)
[2022-02-05] MEDS: Enoxaparin Sodium 30 MG/0.3 ML SYRINGE SC SCH (09:39)
[2022-02-05] MEDS: methylPREDNISolone Sod Succ 40 MG VIAL IVP SCH (12:40)
[2022-02-05] MEDS: Tuberculin PPD 0.1 ML VIAL I-DERMAL SCH (12:40)
[2022-02-05] MEDS: Benzonatate 100 MG CAP PO PRN (14:42)
[2022-02-05] MEDS ORDERED: READ PPD TEST SITE PO SCH (15:15)
[2022-02-05] MEDS: HumaLOG 300 UNITS/3 ML VIAL SC PRN (17:39)
[2022-02-05] MEDS: Cefepime 0.5 GM, Admixture Fee 1 EACH in Sodium Chloride 0.9% 100 ML IVPB SCH (21:17)
[2022-02-06] MEDS ORDERED: Simethicone Chewable 80 MG TAB PO PRN (00:40)
[2022-02-06] MEDS: Enoxaparin Sodium 30 MG/0.3 ML SYRINGE SC SCH (08:55)
[2022-02-06] MEDS: methylPREDNISolone Sod Succ 40 MG VIAL IVP SCH (08:56)
[2022-02-06] MEDS: Tuberculin PPD 0.1 ML VIAL I-DERMAL SCH (11:29)
[2022-02-06] MEDS: HumaLOG 300 UNITS/3 ML VIAL SC PRN ×2 (11:29→16:13)
[2022-02-06] MEDS ORDERED: cefTRIAXone\\ROCEPHIN 2 GM in Sodium Chloride 0.9% 100 ML IVPB SCH (21:00)
[2022-02-07 07:29] VITALS: TEMP 97.8
[2022-02-07] MEDS: methylPREDNISolone Sod Succ 40 MG VIAL IVP SCH (08:50)
[2022-02-07] MEDS: Enoxaparin Sodium 30 MG/0.3 ML SYRINGE SC SCH (08:50)
[2022-02-07] MEDS ORDERED: Protamine Sulfate 50 MG/5 ML VIAL ONE (11:28)
[2022-02-07] MEDS ORDERED: Heparin 5,000 UNITS/ML VIAL ONE (11:28)
[2022-02-07] MEDS ORDERED: Bupivacaine PF 0.5% 30 ML VIAL ONE (11:28)
[2022-02-07] MEDS ORDERED: Lidocaine 1% w/Epinephrine 1:100K 20 ML VIAL ONE (11:28)
[2022-02-07] MEDS ORDERED: Heparin 10,000 UNITS/ 10 ML VIAL ONE (11:31)
[2022-02-07] MEDS ORDERED: fentaNYL Citrate/PF 100 MCG/2 ML SYRINGE ONE (11:37)
[2022-02-07] MEDS ORDERED: Ketamine 50 MG/ML (10ML VIAL) ONE (11:37)
[2022-02-07] MEDS ORDERED: Midazolam HCl 2 mg/2 ml Vial ONE (11:37)
[2022-02-07] MEDS ORDERED: traMADol HCl 50 MG TAB PO PRN (11:38)
[2022-02-07] MEDS ORDERED: Acetaminophen 500 MG TAB PO PRN (11:38)
[2022-02-07] MEDS ORDERED: Norepinephrine 4 MG/4 ML VIAL ONE ×2 (11:41→13:09)
[2022-02-07] MEDS ORDERED: CEFAZOLIN 2 GM VIAL ONE (11:56)
[2022-02-07] MEDS ORDERED: Sodium Chloride 0.9% 100 ML ONE ×2 (11:56→11:59)
[2022-02-07] MEDS ORDERED: Famotidine/PF 20 mg/2ml Vial ONE (11:58)
[2022-02-07] MEDS ORDERED: Propofol 500 MG/50 ML VIAL ONE (11:59)
[2022-02-07] MEDS ORDERED: EPINEPHrine 1 MG/10 ML Abboject SYRINGE ONE ×2 (12:06→13:28)
[2022-02-07] MEDS ORDERED: Calcium Chloride 1 GM/10 ML Abboject SYRINGE ONE (13:28)
[2022-02-07] MEDS ORDERED: Sodium Bicarb 50 MEQ/50 ML Abboject 8.4% SYRINGE ONE (13:28)
[2022-02-07] MEDS ORDERED: Carvedilol 3.125 MG TAB PO SCH (17:00)
== END 2022-02-07 17:10 | disposition expired ==
LOC: ERS 18:24 → IMCU/EMU 21:51 → CCU 02-07 13:08 → IMCU/EMU 02-07 14:17
PROVIDERS: ADMIT Internal Medicine; ATTEND Internal Medicine
PROC: 5A09357 Assistance with Respiratory Ventilation, Less than 24 Consecutive Hours, Continuous Positive Airway Pressure (ICD-10-PCS; 2022-02-02)
PROC: 5A1D70Z Performance of Urinary Filtration, Intermittent, Less than 6 Hours Per Day (ICD-10-PCS; principal; 2022-02-03)
PROC: 06HY33Z Insertion of Infusion Device into Lower Vein, Percutaneous Approach (ICD-10-PCS; 2022-02-03)
PROC: 5A12012 Performance of Cardiac Output, Single, Manual (ICD-10-PCS; 2022-02-07)
PROC: 5A2204Z Restoration of Cardiac Rhythm, Single (ICD-10-PCS; 2022-02-07)
PROC: 0BH17EZ Insertion of Endotracheal Airway into Trachea, Via Natural or Artificial Opening (ICD-10-PCS; 2022-02-07)
PROC: 3E0T3BZ Introduction of Anesthetic Agent into Peripheral Nerves and Plexi, Percutaneous Approach (ICD-10-PCS; 2022-02-07)
PROC: 3E033XZ Introduction of Vasopressor into Peripheral Vein, Percutaneous Approach (ICD-10-PCS; 2022-02-07)
PROC: B5131ZZ Fluoroscopy of Right Jugular Veins using Low Osmolar Contrast (ICD-10-PCS; 2022-02-07)
PROC: 0W9B00Z Drainage of Left Pleural Cavity with Drainage Device, Open Approach (ICD-10-PCS; 2022-02-07)
DX: I13.2 Hypertensive heart and chronic kidney disease with heart failure and with stage 5 chronic kidney disease, or end stage renal disease (principal); Z20.822 Contact with and (suspected) exposure to COVID-19; J96.21 Acute and chronic respiratory failure with hypoxia; I21.A1 Myocardial infarction type 2; I50.23 Acute on chronic systolic (congestive) heart failure; N18.6 End stage renal disease; N17.9 Acute kidney failure, unspecified; E87.2 Acidosis; N30.00 Acute cystitis without hematuria; J93.9 Pneumothorax, unspecified; J94.2 Hemothorax; R57.9 Shock, unspecified; I42.0 Dilated cardiomyopathy; M19.90 Unspecified osteoarthritis, unspecified site; E11.22 Type 2 diabetes mellitus with diabetic chronic kidney disease; D63.1 Anemia in chronic kidney disease; M06.9 Rheumatoid arthritis, unspecified; M32.9 Systemic lupus erythematosus, unspecified; E55.9 Vitamin D deficiency, unspecified; M10.9 Gout, unspecified; E11.51 Type 2 diabetes mellitus with diabetic peripheral angiopathy without gangrene; J84.10 Pulmonary fibrosis, unspecified; R77.8 Other specified abnormalities of plasma proteins; E87.5 Hyperkalemia; R79.89 Other specified abnormal findings of blood chemistry; B96.20 Unspecified Escherichia coli [E. coli] as the cause of diseases classified elsewhere; I25.5 Ischemic cardiomyopathy; I46.2 Cardiac arrest due to underlying cardiac condition; I48.91 Unspecified atrial fibrillation; Z90.49 Acquired absence of other specified parts of digestive tract; Z90.710 Acquired absence of both cervix and uterus; Z79.899 Other long term (current) drug therapy; Z99.81 Dependence on supplemental oxygen; Z95.810 Presence of automatic (implantable) cardiac defibrillator; Z90.722 Acquired absence of ovaries, bilateral
CPT/HCPCS: 36415; 36416; 71045; 80048; 80053; 80074; 81003; 81015; 82553; 82805; 83605; 83735; 83880; 84484; 85025; 85379; 85610; 85730; 86580; 86706; 86803; 87040; 87077; 87086; 87149; 87186; 87340; 87389; 90935; 93005; 93306; 93970; 94640; 94760; 96361; 96365; 96367; 96375; C1752; G0257; J0171; J0610; J0690; J0692; J0696; J1642; J1644; J1650; J1815; J2250; J2405; J2704; J2720; J2920; J3490; J7620; S0020; S0028; U0002